=== PATIENT | male | born 1955 | race Two or more races ===

== ENCOUNTER 2020-02-07 12:20 | Inpatient (IN) | payer OTHER ==
[~2020-02-07] VITALS: Ht 213.4 cm; Wt 5.0 kg
[2020-02-07] MEDS ORDERED: METOPROLOL TAR100 MG PO (12:49)
[2020-02-07] MEDS ORDERED: HYDRALAZINE HCL50 MG PO (12:49)
[2020-02-07] MEDS ORDERED: ADALAT CC60 MG PO (12:50)
[2020-02-07] MEDS ORDERED: ATIVAN0.5 M1 PO (12:50)
[2020-02-07] MEDS ORDERED: ZESTRIL40 M1 PO (12:50)
[2020-02-07] MEDS ORDERED: TAMS0.4C PO (12:51)
--- NOTE | 2020-02-07 12:59 | NUR ---
SE RECIBE PACIENTE EN [place] AL [place] EL MISMO REFIERE SE LARISSA INTENTANDO COGER UN [place] EN [place]. PACIENTE SE REALIZO HERIDA EN DEDO PULGAR DE MANO [place]QU[place]. PACIENTE REFIERE QUE NO TIENE VISTA DESDE QUE SE LARISSA. PACIENTE AL MOMENTO ESTA EN COMPANIA DE FAMILIAR. SE PRESENTA CLAUDE A DR. TIPTON CUAL ORDENA UBICAR A PACIENTE EN PASILLO.
--- NOTE | 2020-02-07 15:38 | NUR ---
SE NOTIFICA MRI PENDIENTE,PTE SUTURADO POR DR TPITON BAJO MEDIDAS ASEPTICAS Y ESTERILES.
--- NOTE | 2020-02-07 18:03 | NUR ---
SE ADMINISTRAN MEDICAMENTOS RENAN ORDEN MEDICA.
[2020-02-08] MEDS ORDERED: METOPROLOL SUC200 MG (16:32)
[2020-02-08] MEDS ORDERED: SILDENAFIL CITR50 MG (16:32)
[2020-02-08] MEDS ORDERED: CLONAZEPAM0.5 MG (16:32)
[2020-02-08] MEDS ORDERED: RESTORIL30 MG (16:35)
[2020-02-12] MEDS ORDERED: LISINOPRIL40 MG PO (09:31)
[2020-02-12] MEDS ORDERED: ELIQUIS5 MG PO (09:31)
[2020-02-12] MEDS ORDERED: NIFEDIPINE ER60 MG PO (09:32)
[2020-02-12] MEDS ORDERED: HYDRALAZINE HCL50 MG PO (09:32)
[2020-02-12] MEDS ORDERED: ZOCOR20 MG PO (09:33)
[2020-02-12] MEDS ORDERED: TOPROL XL100 M1 PO (09:38)
[2020-02-13] MEDS ORDERED: AVIDOXY100 MG PO (08:34)
== END 2020-02-12 13:34 | disposition home or self-care (01) | DRG 65 ==
LOC: ER 12:20 → MEDI 19:28
PROVIDERS: ADMIT Internal Medicine; ATTEND Internal Medicine
PROC: B030ZZZ Magnetic Resonance Imaging (MRI) of Brain (ICD-10-PCS; principal; 2020-02-07)
PROC: 4A12X4Z Monitoring of Cardiac Electrical Activity, External Approach (ICD-10-PCS; 2020-02-07)
PROC: B24BZZZ Ultrasonography of Heart with Aorta (ICD-10-PCS; 2020-02-07)
PROC: BW40ZZZ Ultrasonography of Abdomen (ICD-10-PCS; 2020-02-09)
DX: I63.531 Cerebral infarction due to unspecified occlusion or stenosis of right posterior cerebral artery (principal); I48.20 Chronic atrial fibrillation, unspecified; G82.20 Paraplegia, unspecified; I10 Essential (primary) hypertension; B91 Sequelae of poliomyelitis; Z20.828 Contact with and (suspected) exposure to other viral communicable diseases; S61.012A Laceration without foreign body of left thumb without damage to nail, initial encounter; Z79.01 Long term (current) use of anticoagulants; W18.39XA Other fall on same level, initial encounter; K76.89 Other specified diseases of liver; B96.0 Mycoplasma pneumoniae [M. pneumoniae] as the cause of diseases classified elsewhere; R50.9 Fever, unspecified
CPT/HCPCS: 70544

== ENCOUNTER → 2020-02-19 | Emergency (ER) | payer OTHER ==
[~2020-02-19] MED LIST: ADALAT CC60 MG PO; ATIVAN0.5 M1 PO; AVIDOXY100 MG PO; CALCIUM 600 +1 EACH PO; CLONAZEPAM0.5 MG; ELIQUIS5 MG PO; HYDRALAZINE HCL50 MG PO; LISINOPRIL40 MG PO; METOPROLOL SUC200 MG; METOPROLOL TAR100 MG PO; NIFEDIPINE ER60 M1 PO; NIFEDIPINE ER60 MG PO; RESTORIL30 MG; SILDENAFIL CITR50 MG; SIMVASTATIN20 MG PO; TAMS0.4C PO; TOPROL XL100 M1 PO; ZESTRIL40 M1 PO; ZOCOR20 MG PO
== END | disposition left against medical advice (07) ==
LOC: ER 09:26
DX: Z53.20 Procedure and treatment not carried out because of patient's decision for unspecified reasons (principal)

== ENCOUNTER 2020-02-22 16:46 | Emergency (ER) | payer OTHER ==
[~2020-02-22] VITALS: Ht 170.2 cm; Wt 75.7 kg
[~2020-02-22 16:46] MED LIST changes: -CALCIUM 600 +1 EACH PO; -NIFEDIPINE ER60 M1 PO; -SIMVASTATIN20 MG PO
[2020-02-22] MEDS ORDERED: NIFEDIPINE ER60 M1 PO (16:59)
[2020-02-22] MEDS ORDERED: SIMVASTATIN20 MG PO (16:59)
[2020-02-22] MEDS ORDERED: CALCIUM 600 +1 EACH PO (17:00)
== END 2020-02-22 18:06 | disposition home or self-care (01) ==
LOC: ER 16:46
DX: R60.0 Localized edema (principal); S63.125 Dislocation of interphalangeal joint of left thumb; X58.XXXS Exposure to other specified factors, sequela; Z48.02 Encounter for removal of sutures

== ENCOUNTER 2020-04-29 08:29 | Outpatient (CLI) | payer OTHER ==
[~2020-04-29 08:29] MED LIST changes: +CALCIUM 600 +1 EACH PO; +NIFEDIPINE ER60 M1 PO; +SIMVASTATIN20 MG PO
== END 2020-04-29 08:54 | disposition home or self-care (01) ==
LOC: TOM 08:29
PROVIDERS: ATTEND Internal Medicine Gastroenterology
DX: K56.600 Partial intestinal obstruction, unspecified as to cause (principal); K40.90 Unilateral inguinal hernia, without obstruction or gangrene, not specified as recurrent; Q44.6 Cystic disease of liver; K62.5 Hemorrhage of anus and rectum

== ENCOUNTER 2020-05-09 08:10 | Outpatient (CLI) | payer OTHER | END 2020-05-09 08:12 | disposition home or self-care (01) | LOC: RX STUDY 08:10 | PROVIDERS: ATTEND Internal Medicine Gastroenterology | DX: K21.9 Gastro-esophageal reflux disease without esophagitis (principal); R10.13 Epigastric pain; K44.9 Diaphragmatic hernia without obstruction or gangrene ==